=== PATIENT | male | born 1935 | race Caucasian/White ===

== ENCOUNTER 2019-03-10 16:15 | Inpatient (IN) | payer MEDICARE ==
[~2019-03-10] VITALS: Ht 180.3 cm; Wt 93.9 kg
[2019-03-10 16:23] VITALS: BP 128/72
[2019-03-10] MEDS ORDERED: WARF10TA40 PO (18:29)
[2019-03-10] MEDS ORDERED: POLY2500 PO (18:29)
[2019-03-10] MEDS ORDERED: ATOR10TA60 PO (18:29)
[2019-03-10] MEDS ORDERED: FLUT1DIS IH (18:29)
[2019-03-10] MEDS ORDERED: HYDR170P TP (18:29)
[2019-03-10] MEDS ORDERED: DICL100G18 TP (18:29)
[2019-03-10] MEDS ORDERED: MAGN400T5 PO (18:29)
[2019-03-10] MEDS ORDERED: EZET10TA20 PO (18:29)
[2019-03-10] MEDS ORDERED: URSO250T3 PO (18:29)
[2019-03-10] MEDS ORDERED: MOME13HF IH (18:29)
[2019-03-10] MEDS ORDERED: MONT10TA80 PO (18:29)
[2019-03-10] MEDS ORDERED: PROAIR RESPICL90 MCG IH (18:29)
[2019-03-10] MEDS ORDERED: ENOX40DI SQ (18:29)
[2019-03-10] MEDS ORDERED: CHOL400T6 PO (18:29)
[2019-03-10] MEDS ORDERED: CITA20TA6 PO (18:29)
[2019-03-10] MEDS ORDERED: CARV3.1230 PO (18:29)
[2019-03-10] MEDS ORDERED: FURO20TA3 PO (18:29)
[2019-03-10] MEDS ORDERED: POTA20TA4 PO (18:29)
[2019-03-10] MEDS ORDERED: DICLOFENAC SODIUM 1% TOPICAL GEL 100GM TUBE. TP PRN (19:30)
[2019-03-10] MEDS ORDERED: NON FORMULARY ITEM (Albuterol Sulfate (Proair Respiclick) 2 PUFF) IH PRN (19:30)
[2019-03-10] MEDS ORDERED: MINERAL OIL/PETROLATUM TOPICAL CREAM 113GM JAR. TP PRN (19:45)
[2019-03-10 19:46] VITALS: BP 162/67
[2019-03-10] MEDS: ALBUTEROL SULFATE 2.5 MG/3 ML NEBU. NEB SCH (20:00)
[2019-03-10] MEDS: BUDESONIDE 0.5 MG/2 ML NEBU NEB SCH (20:00)
[2019-03-10] MEDS ORDERED: ALBUTEROL SULFATE 2.5 MG/3 ML NEBU. NEB PRN (20:00)
[2019-03-10] MEDS: URSODIOL 300 MG CAPSULE. PO SCH (20:37)
[2019-03-10] MEDS: EZETIMIBE 10 MG TABLET PO SCH (20:37)
[2019-03-10] MEDS: ATORVASTATIN CALCIUM 10 MG TABLET. PO SCH (20:37)
[2019-03-10] MEDS: MONTELUKAST 10 MG TABLET. PO SCH (20:37)
[2019-03-10] MEDS ORDERED: NON FORMULARY ITEM (Mometasone/Formoterol (Dulera 200 Mcg/5 Mcg Inhaler) 2 PUFF) IH SCH (21:00)
[2019-03-10] MEDS ORDERED: NON FORMULARY ITEM (Fluticasone/Salmeterol (Advair 100-50 Diskus) 2 PUFF) IH SCH (21:00)
[2019-03-11] MEDS: ALBUTEROL SULFATE 2.5 MG/3 ML NEBU. NEB SCH ×4 (05:41→21:36)
[2019-03-11 06:00] VITALS: BP 90/53
[2019-03-11 08:05] VITALS: BP 120/70
[2019-03-11] MEDS: ENOXAPARIN 40 MG/0.4 ML SYRINGE. SQ SCH (08:07)
[2019-03-11] MEDS: MAGNESIUM OXIDE 400 MG TABLET PO SCH (08:08)
[2019-03-11] MEDS: CHOLECALCIFEROL (VITAMIN D3) 1,000 UNIT TABLET PO SCH (08:08)
[2019-03-11] MEDS: POTASSIUM CHLORIDE 20 MEQ TABLET.ER. PO SCH (08:08)
[2019-03-11] MEDS: FUROSEMIDE 20 MG TABLET PO SCH (08:08)
[2019-03-11] MEDS: URSODIOL 300 MG CAPSULE. PO SCH ×2 (08:09→21:04)
[2019-03-11] MEDS: CARVEDILOL 3.125 MG TABLET PO SCH ×2 (08:09→16:17)
[2019-03-11] MEDS: CITALOPRAM 20 MG TABLET. PO SCH (08:09)
[2019-03-11] MEDS ORDERED: POLYETHYLENE GLYCOL 3350 17 GM PACKET. PO PRN (09:00)
[2019-03-11] MEDS: BUDESONIDE 0.5 MG/2 ML NEBU NEB SCH ×2 (10:32→21:36)
[2019-03-11] MEDS ORDERED: WARFARIN 10 MG TABLET. PO SCH (16:00)
[2019-03-11 18:22] VITALS: BP 125/70
[2019-03-11] MEDS: EZETIMIBE 10 MG TABLET PO SCH (21:04)
[2019-03-11] MEDS: MONTELUKAST 10 MG TABLET. PO SCH (21:05)
[2019-03-11] MEDS: ATORVASTATIN CALCIUM 10 MG TABLET. PO SCH (21:05)
[2019-03-12] MEDS: ALBUTEROL SULFATE 2.5 MG/3 ML NEBU. NEB SCH ×4 (05:32→21:29)
[2019-03-12 05:40] VITALS: BP_SYST 111; BP_SYST 145; BP_DIAS 67; BP_DIAS 71
[2019-03-12] MEDS: BUDESONIDE 0.5 MG/2 ML NEBU NEB SCH ×3 (07:54→21:29)
[2019-03-12] MEDS: FUROSEMIDE 20 MG TABLET PO SCH (07:55)
[2019-03-12] MEDS: CHOLECALCIFEROL (VITAMIN D3) 1,000 UNIT TABLET PO SCH (07:55)
[2019-03-12] MEDS: ENOXAPARIN 40 MG/0.4 ML SYRINGE. SQ SCH (07:55)
[2019-03-12] MEDS: MAGNESIUM OXIDE 400 MG TABLET PO SCH (07:56)
[2019-03-12] MEDS: CITALOPRAM 20 MG TABLET. PO SCH (07:56)
[2019-03-12] MEDS: CARVEDILOL 3.125 MG TABLET PO SCH ×2 (07:56→17:17)
[2019-03-12] MEDS: POTASSIUM CHLORIDE 20 MEQ TABLET.ER. PO SCH (07:56)
[2019-03-12] MEDS: URSODIOL 300 MG CAPSULE. PO SCH ×2 (07:56→20:35)
[2019-03-12] MEDS: WARFARIN 6 MG TABLET. PO SCH (17:18)
[2019-03-12 20:00] VITALS: BP_SYST 122; BP_SYST 160; BP_DIAS 70; BP_DIAS 77
[2019-03-12] MEDS: ATORVASTATIN CALCIUM 10 MG TABLET. PO SCH (20:35)
[2019-03-12] MEDS: EZETIMIBE 10 MG TABLET PO SCH (20:35)
[2019-03-12] MEDS: MONTELUKAST 10 MG TABLET. PO SCH (20:36)
--- NOTE | 2019-03-12 21:47 | HP ---
ADMIT DATE: 03/10/2019 HISTORY OF PRESENT ILLNESS: The patient is an 83-year-old male patient with a past medical history significant for chronic systolic heart failure, mechanical aortic valve replacement in 1992, obstructive sleep apnea on CPAP, COPD, type 2 diabetes and Alzheimer's who was recently hospitalized at [facility] for 3 days for weakness and dehydration and was discharged on 02/21/2019. He was discharged to [place] care home unit, but was taken home that same day by his family as they did not feel he was being adequately cared for. He presented to the [facility] emergency department on 02/24/2019, ended up with complaint of weakness, abdominal pain, hypotension, possibly blood in his stool and family requested transfer to [facility], where he was [facility] on 02/25/2019. On arrival, he arrived in septic shock, was aggressively fluid resuscitated and required pressors. CT at the outside hospital was concerning for cholecystitis and ultrasound showed choledocholithiasis with 6 mm stone in the common bile duct. GI was consulted and performed ERCP and placed a stent. He improved clinically and was weaned off pressors and downgraded out of the ICU. On March 02, repeat ERCP completed, able to extract stone, stent was removed and balloon sphincteroplasty performed. He has remained improved, completed the antibiotic for 10 days, the last dose was on March 06. His warfarin was held for the procedure, but resumed now with enoxaparin bridge and he was seen in consultation by the cardiology team for evaluation of his systolic heart failure and runs of sustained ventricular tachycardia. Coreg was resumed once the patient could tolerate, his symptoms have resolved. Later in hospital course, he developed hypotension and blood pressure medications were adjusted. Once he is stabilized, he was transferred to [facility] bed to continue the process of rehabilitation. PAST MEDICAL HISTORY: Significant for: 1. Chronic systolic heart failure. 2. Mechanical aortic valve replacement in 1992. 3. Morbid obesity, obstructive sleep apnea, on CPAP. 4. Chronic obstructive pulmonary disease. 5. Diabetes mellitus. 6. Alzheimer disease. PAST SURGICAL HISTORY: Significant for: 1. Aortic valve replacement. 2. ERCP and stent placement to the common bile duct. ALLERGIES: He is allergic to MEPERIDINE AND MORPHINE. MEDICATIONS: He is currently on following medications: He is on albuterol sulfate 2 puffs every 4-6 hours; Lovenox 40 mg subcutaneously daily; warfarin 10 mg once a day; Zetia 10 mg at bedtime; atorvastatin 10 mg at bedtime; carvedilol 3.125 mg twice a day with meals; diclofenac sodium 100 g gel, 2 grams topically as needed for pain; citalopram hydrobromide 20 mg daily; potassium chloride 20 mEq once a day; furosemide 20 mg once a day; Advair Diskus 100/50 two puffs twice a day; he is on mometasone/formoterol, Dulera, 2 puffs twice a day; Singulair 10 mg at bedtime; magnesium oxide 400 mg once a day; ursodiol 300 mg twice a day; vitamin D; cholecalciferol 1000 units daily; hydrophilic cream applied topically twice a day; and polyethylene glycol 17 grams daily p.r.n. for constipation. FAMILY HISTORY: Noncontributory. SOCIAL HISTORY: He is , lives with his , has grown up children. He claims that he has never smoked, although he carries a diagnosis of COPD. Does not drink alcohol or use any recreational drugs. 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 REVIEW OF SYSTEMS: As per history of present illness. PHYSICAL EXAMINATION GENERAL: When I examined him this afternoon, he was sitting on the edge of the bed comfortably, in no apparent respiratory distress. No pallor, jaundice, cyanosis. No lymphadenopathy or thyromegaly. No jugular venous distention. No lower limb edema. VITAL SIGNS: His heart rate was 78, blood pressure was 111/67, temperature was 97.6, respiratory rate was 18 and oxygen saturation was 96% on room air. HEAD, EYES, EARS, NOSE AND THROAT: Showed normocephalic, atraumatic. NECK: Supple. HEART: Showed normal first and second heart sounds. No gallop, rub or murmur. CHEST: Clear to auscultation. No crepitation or rhonchi. ABDOMEN: Distended, soft, nontender. No guarding or rigidity. No organomegaly. All hernial orifices intact. Bowel sounds normal. NEUROLOGIC: He is somewhat hard of hearing, but otherwise all his cranial nerves are intact. He moves extremities without difficulty, he ambulates with a walker. LABORATORY WORK: Showed that his prothrombin time is 15.2, INR 1.5. His blood sugar seems to be reasonably controlled. ASSESSMENT: This is an 83-year-old male patient who was admitted to Critical access hospital with sepsis secondary to ascending cholangitis and choledocholithiasis. He was resuscitated with IV fluids, pressors and antibiotic, underwent ERCP and retrieval of 6 mm common bile duct stone. Once stabilized, he was transferred to a swing bed in [facility] to continue the process of rehabilitation. He has numerous medical problems includin. Chronic systolic congestive heart failure, ejection fraction 25%. 2. Chronic kidney disease. 3. Chronic obstructive pulmonary disease. He is a former smoker, has hyperlipidemia, hypertension, myocardial infarction. He has obstructive sleep apnea and an episode of transient ischemic attack. The patient underwent aortic valve replacement, AICD placement as well as hernia repair together with ERCP recently. PLAN: My plan is to continue with all his medication. Continue with Lovenox and Coumadin in an overlapping pattern, we will monitor his PT/INR on a daily basis and once his INR is 2.5 or more, we can discontinue Lovenox. VICKY BARR MD DR: GUANAKITO/manjeet JOB#: [id number] / [id number]
[2019-03-13] MEDS: ALBUTEROL SULFATE 2.5 MG/3 ML NEBU. NEB SCH ×4 (05:33→21:45)
[2019-03-13 06:14] VITALS: BP 137/74
[2019-03-13 07:08] LABS: HEMATOCRIT 37.4 % (39.0-53.0); HEMOGLOBIN 12.2 g/dL (13.0-17.5); RED BLOOD COUNT 3.95 x10^6/uL (4.30-5.70); RED CELL DISTRIBUTION WIDTH 14.8 % (11.5-14.5); WHITE BLOOD COUNT 5.9 x10^3/uL (4.0-11.0)
[2019-03-13 07:27] LABS: ALBUMIN 2.7 g/dL (3.4-5.0); ALBUMIN/GLOBULIN RATIO 0.7 (1.0-1.7); CALCIUM 8.6 mg/dL (8.5-10.1); GFR 71.7; POTASSIUM 4.3 mmol/L (3.5-5.1); TOTAL BILIRUBIN 0.5 mg/dL (0.2-1.0); TOTAL PROTEIN 6.5 g/dL (6.4-8.2)
[2019-03-13] MEDS: MAGNESIUM OXIDE 400 MG TABLET PO SCH (08:20)
[2019-03-13] MEDS: ENOXAPARIN 40 MG/0.4 ML SYRINGE. SQ SCH (08:20)
[2019-03-13] MEDS: URSODIOL 300 MG CAPSULE. PO SCH ×2 (08:20→21:17)
[2019-03-13] MEDS: CHOLECALCIFEROL (VITAMIN D3) 1,000 UNIT TABLET PO SCH (08:21)
[2019-03-13] MEDS: CARVEDILOL 3.125 MG TABLET PO SCH ×2 (08:21→16:10)
[2019-03-13] MEDS: FUROSEMIDE 20 MG TABLET PO SCH (08:21)
[2019-03-13] MEDS: POTASSIUM CHLORIDE 20 MEQ TABLET.ER. PO SCH (08:21)
[2019-03-13] MEDS: CITALOPRAM 20 MG TABLET. PO SCH (08:22)
[2019-03-13] MEDS: BUDESONIDE 0.5 MG/2 ML NEBU NEB SCH ×2 (10:31→21:45)
[2019-03-13] MEDS: WARFARIN 6 MG TABLET. PO SCH (16:07)
[2019-03-13 18:30] VITALS: BP 104/69
[2019-03-13] MEDS: EZETIMIBE 10 MG TABLET PO SCH (21:16)
[2019-03-13] MEDS: ATORVASTATIN CALCIUM 10 MG TABLET. PO SCH (21:16)
[2019-03-13] MEDS: MONTELUKAST 10 MG TABLET. PO SCH (21:16)
[2019-03-14] MEDS: ALBUTEROL SULFATE 2.5 MG/3 ML NEBU. NEB SCH ×4 (05:12→20:29)
[2019-03-14 05:50] VITALS: BP 100/57
[2019-03-14] MEDS: CARVEDILOL 3.125 MG TABLET PO SCH ×2 (08:00→17:00)
[2019-03-14] MEDS: URSODIOL 300 MG CAPSULE. PO SCH ×2 (08:36→19:39)
[2019-03-14] MEDS: MAGNESIUM OXIDE 400 MG TABLET PO SCH (08:37)
[2019-03-14] MEDS: POTASSIUM CHLORIDE 20 MEQ TABLET.ER. PO SCH (08:37)
[2019-03-14] MEDS: CITALOPRAM 20 MG TABLET. PO SCH (08:37)
[2019-03-14] MEDS: FUROSEMIDE 20 MG TABLET PO SCH (08:37)
[2019-03-14] MEDS: CHOLECALCIFEROL (VITAMIN D3) 1,000 UNIT TABLET PO SCH (08:37)
[2019-03-14] MEDS: ENOXAPARIN 40 MG/0.4 ML SYRINGE. SQ SCH (08:38)
[2019-03-14] MEDS: BUDESONIDE 0.5 MG/2 ML NEBU NEB SCH ×2 (09:38→20:29)
[2019-03-14] MEDS: WARFARIN 6 MG TABLET. PO SCH (16:49)
[2019-03-14 18:14] VITALS: BP 94/50
[2019-03-14] MEDS: EZETIMIBE 10 MG TABLET PO SCH (19:39)
[2019-03-14] MEDS: ATORVASTATIN CALCIUM 10 MG TABLET. PO SCH (19:39)
[2019-03-14] MEDS: MONTELUKAST 10 MG TABLET. PO SCH (19:39)
[2019-03-15 05:48] VITALS: BP 115/72
[2019-03-15] MEDS: CHOLECALCIFEROL (VITAMIN D3) 1,000 UNIT TABLET PO SCH (09:02)
[2019-03-15] MEDS: MAGNESIUM OXIDE 400 MG TABLET PO SCH (09:02)
[2019-03-15] MEDS: FUROSEMIDE 20 MG TABLET PO SCH (09:02)
[2019-03-15] MEDS: POTASSIUM CHLORIDE 20 MEQ TABLET.ER. PO SCH (09:02)
[2019-03-15] MEDS: CITALOPRAM 20 MG TABLET. PO SCH (09:02)
[2019-03-15] MEDS: CARVEDILOL 3.125 MG TABLET PO SCH ×2 (09:03→18:02)
[2019-03-15] MEDS: URSODIOL 300 MG CAPSULE. PO SCH ×2 (09:03→19:41)
[2019-03-15] MEDS: ENOXAPARIN 40 MG/0.4 ML SYRINGE. SQ SCH (09:04)
[2019-03-15] MEDS: ALBUTEROL SULFATE 2.5 MG/3 ML NEBU. NEB SCH ×3 (09:40→20:34)
[2019-03-15] MEDS: BUDESONIDE 0.5 MG/2 ML NEBU NEB SCH ×2 (09:40→20:34)
[2019-03-15] MEDS ORDERED: WARFARIN 10 MG TABLET. PO ONE (16:00)
[2019-03-15 18:12] VITALS: BP 151/75
[2019-03-15] MEDS: MONTELUKAST 10 MG TABLET. PO SCH (19:40)
[2019-03-15] MEDS: EZETIMIBE 10 MG TABLET PO SCH (19:40)
[2019-03-15] MEDS: ATORVASTATIN CALCIUM 10 MG TABLET. PO SCH (19:40)
[2019-03-16 05:52] VITALS: BP 124/82
[2019-03-16] MEDS: BUDESONIDE 0.5 MG/2 ML NEBU NEB SCH ×2 (05:54→21:06)
[2019-03-16] MEDS: ALBUTEROL SULFATE 2.5 MG/3 ML NEBU. NEB SCH ×4 (05:54→20:00)
[2019-03-16] MEDS: MAGNESIUM OXIDE 400 MG TABLET PO SCH (08:11)
[2019-03-16] MEDS: CHOLECALCIFEROL (VITAMIN D3) 1,000 UNIT TABLET PO SCH (08:11)
[2019-03-16] MEDS: URSODIOL 300 MG CAPSULE. PO SCH ×2 (08:11→20:05)
[2019-03-16] MEDS: POTASSIUM CHLORIDE 20 MEQ TABLET.ER. PO SCH (08:11)
[2019-03-16] MEDS: FUROSEMIDE 20 MG TABLET PO SCH (08:11)
[2019-03-16] MEDS: CARVEDILOL 3.125 MG TABLET PO SCH ×2 (08:11→17:00)
[2019-03-16] MEDS: ENOXAPARIN 40 MG/0.4 ML SYRINGE. SQ SCH (08:12)
[2019-03-16] MEDS: CITALOPRAM 20 MG TABLET. PO SCH (08:12)
[2019-03-16] MEDS ORDERED: WARFARIN 10 MG TABLET. PO ONE (16:00)
[2019-03-16 18:04] VITALS: BP 135/87
[2019-03-16] MEDS: ATORVASTATIN CALCIUM 10 MG TABLET. PO SCH (20:03)
[2019-03-16] MEDS: MONTELUKAST 10 MG TABLET. PO SCH (20:03)
[2019-03-16] MEDS: EZETIMIBE 10 MG TABLET PO SCH (21:00)
[2019-03-17] MEDS: ALBUTEROL SULFATE 2.5 MG/3 ML NEBU. NEB SCH ×4 (05:46→20:54)
[2019-03-17 06:17] LABS: BASO % 1 % (0-3); EOS # 0.3 x10^3/uL (0.0-0.7); EOS % 4 % (0-3); HEMATOCRIT 38.7 % (39.0-53.0); HEMOGLOBIN 12.9 g/dL (13.0-17.5); LYMPH % 46 % (24-48); MEAN CORPUSCULAR HEMOGLOBIN 32 pg (25-35); MEAN CORPUSCULAR HGB CONC 33 g/dL (31-37); MEAN CORPUSCULAR VOLUME 95 fL (79-100); MONO # 0.8 x10^3/uL (0.0-1.1); MONO % 12 % (0-9); NEUT # 2.4 x10^3uL (1.8-7.7); NEUT % 37 % (31-73); PLATELET COUNT 197 x10^3/uL (140-400); RED BLOOD COUNT 4.08 x10^6/uL (4.30-5.70); WHITE BLOOD COUNT 6.6 x10^3/uL (4.0-11.0)
[2019-03-17 06:21] LABS: ALBUMIN/GLOBULIN RATIO 0.8 (1.0-1.7); CALCIUM 8.8 mg/dL (8.5-10.1); CREATININE 1.1 mg/dL (0.7-1.3); GFR 64.2; TOTAL BILIRUBIN 0.5 mg/dL (0.2-1.0)
[2019-03-17 06:29] VITALS: BP 130/68
[2019-03-17] MEDS: CHOLECALCIFEROL (VITAMIN D3) 1,000 UNIT TABLET PO SCH (08:05)
[2019-03-17] MEDS: URSODIOL 300 MG CAPSULE. PO SCH ×2 (08:05→21:02)
[2019-03-17] MEDS: CARVEDILOL 3.125 MG TABLET PO SCH ×2 (08:05→17:02)
[2019-03-17] MEDS: POTASSIUM CHLORIDE 20 MEQ TABLET.ER. PO SCH (08:05)
[2019-03-17] MEDS: CITALOPRAM 20 MG TABLET. PO SCH (08:05)
[2019-03-17] MEDS: FUROSEMIDE 20 MG TABLET PO SCH (08:05)
[2019-03-17] MEDS: MAGNESIUM OXIDE 400 MG TABLET PO SCH (08:05)
[2019-03-17] MEDS: ENOXAPARIN 40 MG/0.4 ML SYRINGE. SQ SCH (08:06)
[2019-03-17] MEDS: BUDESONIDE 0.5 MG/2 ML NEBU NEB SCH ×2 (09:51→20:54)
[2019-03-17] MEDS ORDERED: ENOXAPARIN ** NOTE DOSE ** SYRINGE SQ ONE (10:45)
[2019-03-17] MEDS ORDERED: WARFARIN 10 MG TABLET. PO ONE (16:00)
[2019-03-17] MEDS ORDERED: WARFARIN 5 MG TABLET. PO ONE (16:00)
[2019-03-17 18:12] VITALS: BP 123/78
[2019-03-17] MEDS: EZETIMIBE 10 MG TABLET PO SCH (21:02)
[2019-03-17] MEDS: ATORVASTATIN CALCIUM 10 MG TABLET. PO SCH (21:02)
[2019-03-17] MEDS: MONTELUKAST 10 MG TABLET. PO SCH (21:02)
[2019-03-17] MEDS: ENOXAPARIN ** NOTE DOSE ** SYRINGE SQ SCH (21:02)
[2019-03-18] MEDS: ALBUTEROL SULFATE 2.5 MG/3 ML NEBU. NEB SCH ×4 (06:02→20:00)
[2019-03-18 06:05] VITALS: BP 126/74
[2019-03-18] MEDS: CARVEDILOL 3.125 MG TABLET PO SCH ×2 (08:18→17:02)
[2019-03-18] MEDS: URSODIOL 300 MG CAPSULE. PO SCH ×2 (08:18→20:28)
[2019-03-18] MEDS: POTASSIUM CHLORIDE 20 MEQ TABLET.ER. PO SCH (08:19)
[2019-03-18] MEDS: FUROSEMIDE 20 MG TABLET PO SCH (08:19)
[2019-03-18] MEDS: CITALOPRAM 20 MG TABLET. PO SCH (08:19)
[2019-03-18] MEDS: CHOLECALCIFEROL (VITAMIN D3) 1,000 UNIT TABLET PO SCH (08:20)
[2019-03-18] MEDS: MAGNESIUM OXIDE 400 MG TABLET PO SCH (08:20)
[2019-03-18] MEDS: ENOXAPARIN ** NOTE DOSE ** SYRINGE SQ SCH ×2 (08:21→20:28)
[2019-03-18] MEDS: BUDESONIDE 0.5 MG/2 ML NEBU NEB SCH ×2 (09:52→21:40)
[2019-03-18] MEDS ORDERED: WARFARIN 10 MG TABLET. PO ONE (16:00)
[2019-03-18 18:05] VITALS: BP 117/73
[2019-03-18] MEDS: MONTELUKAST 10 MG TABLET. PO SCH (20:27)
[2019-03-18] MEDS: EZETIMIBE 10 MG TABLET PO SCH (20:27)
[2019-03-18] MEDS: ATORVASTATIN CALCIUM 10 MG TABLET. PO SCH (20:27)
[2019-03-19 05:16] VITALS: BP 105/62
[2019-03-19] MEDS: ALBUTEROL SULFATE 2.5 MG/3 ML NEBU. NEB SCH ×4 (05:47→21:45)
[2019-03-19] MEDS: FUROSEMIDE 20 MG TABLET PO SCH (08:50)
[2019-03-19] MEDS: MAGNESIUM OXIDE 400 MG TABLET PO SCH (08:50)
[2019-03-19] MEDS: POTASSIUM CHLORIDE 20 MEQ TABLET.ER. PO SCH (08:51)
[2019-03-19] MEDS: CARVEDILOL 3.125 MG TABLET PO SCH ×2 (08:51→16:00)
[2019-03-19] MEDS: CHOLECALCIFEROL (VITAMIN D3) 1,000 UNIT TABLET PO SCH (08:51)
[2019-03-19] MEDS: CITALOPRAM 20 MG TABLET. PO SCH (08:51)
[2019-03-19] MEDS: ENOXAPARIN ** NOTE DOSE ** SYRINGE SQ SCH ×2 (08:52→20:42)
[2019-03-19] MEDS: URSODIOL 300 MG CAPSULE. PO SCH ×2 (08:58→20:41)
[2019-03-19] MEDS: BUDESONIDE 0.5 MG/2 ML NEBU NEB SCH ×2 (11:21→21:45)
[2019-03-19 16:00] VITALS: BP 99/58
[2019-03-19] MEDS ORDERED: WARFARIN 10 MG TABLET. PO ONE (16:00)
[2019-03-19 17:43] VITALS: BP 99/58
[2019-03-19] MEDS: ATORVASTATIN CALCIUM 10 MG TABLET. PO SCH (20:41)
[2019-03-19] MEDS: MONTELUKAST 10 MG TABLET. PO SCH (20:41)
[2019-03-19] MEDS: EZETIMIBE 10 MG TABLET PO SCH (20:42)
[2019-03-20 05:36] VITALS: BP 97/63
[2019-03-20] MEDS: ALBUTEROL SULFATE 2.5 MG/3 ML NEBU. NEB SCH ×2 (06:22→08:45)
[2019-03-20] MEDS: BUDESONIDE 0.5 MG/2 ML NEBU NEB SCH (06:22)
[2019-03-20] MEDS: URSODIOL 300 MG CAPSULE. PO SCH (07:53)
[2019-03-20 07:54] VITALS: BP 97/63
[2019-03-20] MEDS: CARVEDILOL 3.125 MG TABLET PO SCH (07:54)
[2019-03-20] MEDS: CITALOPRAM 20 MG TABLET. PO SCH (07:54)
[2019-03-20] MEDS: MAGNESIUM OXIDE 400 MG TABLET PO SCH (07:54)
[2019-03-20] MEDS: FUROSEMIDE 20 MG TABLET PO SCH (07:54)
[2019-03-20] MEDS: POTASSIUM CHLORIDE 20 MEQ TABLET.ER. PO SCH (07:55)
[2019-03-20] MEDS: CHOLECALCIFEROL (VITAMIN D3) 1,000 UNIT TABLET PO SCH (07:55)
[2019-03-20] MEDS: ENOXAPARIN ** NOTE DOSE ** SYRINGE SQ SCH (09:00)
[2019-03-20] MEDS ORDERED: WARF7.5T45 PO (14:05)
--- NOTE | 2019-03-20 14:09 | DISCH ---
HOME HEALTH DISCHARGE/MEDS DISCHARGE INFORMATION: Discharge Date: Mar 20, 2019 Final Diagnosis: A/C Combined CHF Aortic valve replacement Condition on Discharge: Stable CODE STATUS: Code Status: DNR/DNI HOME HEALTH: Face to Face: I certify this patient is under my care and that I, or a nurse practitioner or physician's administrative assistant office manager working with me, had a face to face encounter that meets the physician face to face encounter requirements with this patient on 03/20/19 Medical Condition(s): CHF Jail For: Admin/Educate Injections, Assess Cardiopulm Status Physical Therapy For: Evalulation/Treatment Occupational Therapy For: Evaluation/Treatment Homebound Status Met By: Unsteady balance w/ amb, POST DISCHARGE ORDERS: Activity Instructions for Disc: Resume previous activity DIET AFTER DISCHARGE: Cardiac CHECKS AFTER DISCHARGE: Comment: check PT/INR EVERY SATURDAY AND SATURDAY FOLLOW UP: Anticoagulation F/U Needed: AIM FOR INR OF 2.5-3.5 CERTIFICATION STATEMENT: Certification Statement: Based on the above finding, I certify that this patient is confined to the home and needs intermittent nursing home care, physical therapy and/or speech therapy, or continues to need occupational therapy.~ This patient is under my care, and I have initiated the establishment of the plan of care.~ This patient will be followed by myself or a community physician who will periodically review the plan of care. DISCHARGE MEDICATIONS: Home Meds Active Scripts Warfarin Sodium (WARFARIN SODIUM) 7.5 Mg Tablet, 7.5 MG PO DAILY for ARVR for 30 Days, #30 TAB Prov:VICKY BARR MD 03/20/19 Reported Medications Ursodiol (JEFRY) 250 Mg Tablet, 300 MG PO BID for GALL STONES, % 03/10/19 Albuterol Sulfate (Proair Respiclick) 90 Mcg Aer.pow.ba, 2 PUFF IH PRN Q4-6HRS PRN for shortness of breath, % 0 Refills 03/10/19 Potassium Chloride (POTASSIUM CHLORIDE ) 20 Meq Tablet.er, 20 MEQ PO DAILY for SUPPLEMENT, TAB 03/10/19 Polyethylene Glycol 3350 (POLYETHYLENE GLYCOL 3350) 2,500 Gm Powder, 17 GM PO PRN DAILY PRN for CONSTIPATION, % 03/10/19 Montelukast Sodium (MONTELUKAST SODIUM TABLET ) 10 Mg Tablet, 10 MG PO HS for FOR ASTHMA, % 03/10/19 Mometasone/Formoterol (DULERA 200 MCG/5 MCG INHALER) 13 Gm Hfa.aer.ad, 2 PUFF IH BID for ALLERGIES, % 03/10/19 Magnesium Oxide (MAGNESIUM OXIDE) 400 Mg Tablet, 1 TAB PO DAILY for SUPPLEMENT, % 03/10/19 Hydrophilic Cream (TRIAD) 170 Gm Paste..g., 170 GM TP PRN BID PRN for DRY SKIN, % 03/10/19 Furosemide (FUROSEMIDE) 20 Mg Tablet, 1 TAB PO DAILY for FLUID RETENTION, % 03/10/19 Fluticasone/Salmeterol (ADVAIR 100-50 DISKUS) 1 Each Disk.w.dev, 2 PUFF IH BID for ALLERGIES, % 03/10/19 Ezetimibe (ZETIA) 10 Mg Tablet, 1 TAB PO HS for HIGH CHOLESTEROL, % 0 Refills 03/10/19 Diclofenac Sodium (VOLTAREN) 100 Gm Gel..gram., 2 GM TP PRN PRN for PAIN for 30 Days, % 0 Refills apply to affected area(s) 03/10/19 Citalopram Hydrobromide (CITALOPRAM HBR) 20 Mg Tablet, 20 MG PO DAILY for DEPRESSION, % 03/10/19 Cholecalciferol (Vitamin D3) (VITAMIN D3) 400 Unit Tab.chew, 1000 UNIT PO DAILY for SUPPLEMENT, % 03/10/19 Carvedilol (CARVEDILOL ) 3.125 Mg Tablet, 3.125 MG PO BIDWMEALS for CARDIAC, TAB 03/10/19 Atorvastatin Calcium (ATORVASTATIN CALCIUM) 10 Mg Tablet, 1 TAB PO HS for HIGH CHOLESTEROL, % 03/10/19 Discontinued Reported Medications Warfarin Sodium (WARFARIN SODIUM) 10 Mg Tablet, 10 MG PO QEVNG for BLOOD THINNER, TAB 03/10/19 Enoxaparin Sodium (LOVENOX) 40 Mg/0.4 Ml Disp.syrin, 0.4 ML SQ DAILY for BLOOD THINNER, % 03/10/19 VICKY BARR MD Mar 20, 2019 14:09
[2019-03-20] MEDS ORDERED: WARFARIN 7.5 MG TABLET. PO ONE (16:00)
--- NOTE | 2019-03-20 17:19 | DS ---
DATE OF DISCHARGE: 03/20/2019 HOSPITAL COURSE: The patient is an 83-year-old male patient who was admitted to [facility] bed on 03/12/2019. He was originally seen at the [facility] Emergency Department on 02/24/2019 with a complaint of weakness, abdominal pain, hypotension, possibly blood in his stool and family requested transfer to [facility] where he was transferred to [facility] on 02/25/2019 on arrival. He arrived in septic shock, was aggressively fluid resuscitated and required pressors. CT at the outside hospital was concerning for cholecystitis and ultrasound showed choledocholithiasis, 6 mm stone in the common bile duct. GI was consulted, performed ERCP and placed a stent. He improved clinically and was weaned off pressors and downgraded out of the ICU; on 03/02/2019, the repeat ERCP completed, we were able to extract the stone, stent was removed and balloon sphincteroplasty performed. He continued to improve and completed antibiotic for 10 days. His last dose was on 03/06/2019. His warfarin was held for the procedure, but resumed now on Lovenox bridge and was seen in consultation by the Cardiology team for evaluation of systolic heart failure and runs of sustained ventricular tachycardia. His Coreg was resumed once the patient could tolerate, his symptoms have resolved. Later in the hospital course, he developed hypotension, the blood pressure medications were adjusted. Once he is stabilized, he was transferred to [facility] to continue the process of rehabilitation. He did very well and now he is up and about, able to ambulate with a walker. We did continue to monitor his prothrombin time, INR and adjusting his Coumadin such that his INR today was 2.5, which is well within the therapeutic dose as he has prosthetic aortic valve and as he remained hemodynamically stable and afebrile, a decision was made to discharge him home with home health. PHYSICAL EXAMINATION: GENERAL: When I saw him today, he was sitting comfortably in his chair, in no apparent respiratory distress, slightly pale, no jaundice, cyanosis or thyromegaly. No jugular venous distension. No limb edema. VITAL SIGNS: His heart rate was 76, blood pressure was 97/63, temperature was 97.5, respiratory rate 20, and oxygen saturation was 98% on 2 liters of oxygen. HEAD, EYES, EARS, NOSE AND THROAT: Showed normocephalic, atraumatic. NECK: Supple. HEART: Showed normal first and second heart sounds. No gallop, rub or murmur. CHEST: Clear to auscultation. No crepitation or rhonchi. ABDOMEN: Slightly distended, soft, nontender. NEUROLOGIC: He was awake, alert, responding appropriately. All his cranial nerves are intact. He moves extremities without difficulty, ambulates with a walker. His intake was 1600, output was 975. LABORATORY DATA: His most recent lab work showed a white cell count of 6600, hemoglobin 13, hematocrit 39, MCV 95, and platelet count of 197,000. Serum sodium 138, potassium 4, chloride 103, bicarbonate 28, anion gap of 7, BUN 29, creatinine was 1.1, estimated GFR was 64 mL per minute, his glucose 119, calcium was 8.8. Total bilirubin, AST, ALT, alkaline phosphatase were normal. Total protein was 7, albumin 3. His prothrombin time was 25.6, INR of 2.5. DISCHARGE MEDICATIONS: He was discharged home to continue on following medications: He is on Coumadin 7.5 mg daily, albuterol sulfate 2 puffs every 4-6 hours, atorvastatin calcium 10 mg at bedtime, carvedilol 3.125 mg twice a day with meals, cholecalciferol vitamin D3 1000 International Units once a day, citalopram hydrobromide 20 mg daily, diclofenac sodium for Voltaren gel 2 grams apply topically daily as needed, Zetia 10 mg daily, Advair Diskus 100/50 two puffs twice a day, furosemide 20 mg daily, hydrophilic cream applied topically twice a day for dry skin, magnesium oxide 400 mg daily, mometasone/formoterol for Dulera 2 puffs twice a day, Singulair 10 mg once a day, polyethylene glycol 17 grams daily, potassium chloride 20 mEq once a day, ursodiol 300 mg twice a day. FINAL DISCHARGE DIAGNOSES: 1. Chronic systolic heart failure, well compensated. 2. Mechanical aortic valve replacement. 3. Morbid obesity, obstructive sleep apnea, on CPAP. 4. Chronic obstructive pulmonary disease. 5. Type 2 diabetes mellitus. 6. Alzheimer disease. PLAN: To discharge home with home health. The home health nursing staff will check his PT/INR every Saturday and Saturday and the results would be transmitted to the [facility] to adjust his Coumadin. He was discharged on 7.5 mg of Coumadin daily. VICKY BARR MD DR: GUANAKITO/manjeet JOB#: [id number] / [id number]
== END 2019-03-20 14:38 | disposition home health service (06) | DRG 871 ==
LOC: LND 16:15
PROVIDERS: ADMIT Internal Medicine; ATTEND Internal Medicine
DX: A41.9 Sepsis, unspecified organism (principal); R65.21 Severe sepsis with septic shock; K80.30 Calculus of bile duct with cholangitis, unspecified, without obstruction; I50.22 Chronic systolic (congestive) heart failure; I13.0 Hypertensive heart and chronic kidney disease with heart failure and stage 1 through stage 4 chronic kidney disease, or unspecified chronic kidney disease; G45.9 Transient cerebral ischemic attack, unspecified; I47.2 Ventricular tachycardia; G30.9 Alzheimer's disease, unspecified; J44.9 Chronic obstructive pulmonary disease, unspecified; N18.9 Chronic kidney disease, unspecified; E66.01 Morbid (severe) obesity due to excess calories; G47.33 Obstructive sleep apnea (adult) (pediatric); E11.22 Type 2 diabetes mellitus with diabetic chronic kidney disease; E78.5 Hyperlipidemia, unspecified; F02.80 Dementia in other diseases classified elsewhere, unspecified severity, without behavioral disturbance, psychotic disturbance, mood disturbance, and anxiety; Z68.28 Body mass index [BMI] 28.0-28.9, adult; I25.2 Old myocardial infarction; Z87.891 Personal history of nicotine dependence; Z95.2 Presence of prosthetic heart valve; Z88.5 Allergy status to narcotic agent; Z88.8 Allergy status to other drugs, medicaments and biological substances; Z95.810 Presence of automatic (implantable) cardiac defibrillator
CPT/HCPCS: 36415; 80053; 82947; 85025; 85027; 85610; 94640; J1650; J7613; J7626; 97110; 97116; 97530; 97535

== ENCOUNTER 2020-09-24 02:49 | Emergency (ER) | payer MEDICARE ==
[~2020-09-24] VITALS: Ht 180.3 cm; Wt 96.9 kg
[~2020-09-24 02:49] MED LIST: ATOR10TA60 PO; CARV3.1230 PO; CHOL400T6 PO; CITA20TA6 PO; DICL100G18 TP; ENOX40DI SQ; EZET10TA20 PO; FLUT1DIS IH; FURO20TA3 PO; HYDR170P TP; MAGN400T5 PO; MOME13HF IH; MONT10TA80 PO; POLY2500 PO; POTA20TA4 PO; PROAIR RESPICL90 MCG IH; URSO250T3 PO; WARF10TA40 PO; WARF7.5T45 PO
--- NOTE | 2020-09-24 02:56 | PHYS DOC ---
Past History Past Medical History: Angina, Arthritis, CAD, CHF, COPD, CVA, Coagulopathy, Dementia, Diabetes, Gallstones, GERD, High Cholesterol, Heart Disease, Hypertension, Kidney Stones, Lung Disease, [place], Stroke Past Medical History Sleep apnea Past Surgical History: Angioplasty, Pacemaker, Other Past Surgical History Aortic valve replacement, Hernia repair, Rt. arm reattachment- Smoking: Cigarettes, Quit Greater Than 1 Year General Adult HPI: HPI: " This shocker went off..." Patient is a 85 year old male who presents with above hx and complaints of his defibrillator discharging.. Patient states it woke him from sleep. Shortly after arrival to the ED pt had recurrent defibrillations for runs of V. tach.. Patient has significant cardiac history of aortic valve replacement for failure of Bicuspid aortic value. . Normally follows at [facility]. Diverted [facility] to [facility]. Patient states he been compliant with all his cardiac meds. No recent travel. No significant ill contacts. Patient is on Coumadin for metal aortic valve. Arotic valve placed 1996 at [facility]. Pt. has completed Moderna x , May of this year. Pt. defibrillator dischargefd while pt. in V- tach on monitor. Patient past medical history of renal stones , urosepsis , gallstones, CVA'a,, cardiomyopathy ,WY's, HTN,CHF, Parkinson, Sleep apnea, GI bleed, repiratory failure- hypoxia,, obesity,DM, COPD, diabetes, Alzheimer's, and gait disorder. Pt. has been unable to tolerate CPAP last several months, and now only wears oxygen 3 liters when he sleeps or desaturates. Pt. still chews tobacco. Pt. has had recent discussion as to benefits of Hospice. Has not been placed on Hospice . advised there would be no additional benefits through the [facility] with this designation. Pt.no longer walks with is walker. Is able to stand and turn. Pt. has frequent falls - reportedly every day when he is in the process of standing and turning.. Pt. of 45 years is at bed side. She is pt primary care provider. Pt. Dr. at [facility] is Dr. Ace. Review of Systems: Review of Systems: Constitutional: Denies fever or chills Eyes: Denies change in visual acuity HENT: Denies nasal congestion or sore throat Respiratory: Denies cough or shortness of breath Chest: Complaints of chest pain and defibrillator discharge. GI: Denies abdominal pain, nausea, vomiting, bloody stools or diarrhea : Denies dysuria Musculoskeletal: Denies back pain or joint pain Integument: Denies rash Neurologic: Denies headache, focal weakness or sensory changes Endocrine: Denies polyuria or polydipsia Lymphatic: Denies swollen glands Psychiatric: Denies depression or anxiety Family History: Family History: Noncontributory to presentation Current Medications: Current Meds: See nursing for home meds Allergies: Allergies: Allergies Coded Allergies Type Severity Reaction Last Updated Verified meperidine Allergy Unknown 03/10/19 Yes morphine Allergy Unknown 03/10/19 Yes Physical Exam: PE: Constitutional:in acute distress with periodic defibulatory discharge,, non- toxic appearance. [] HENT: Normocephalic, atraumatic, bilateral external ears normal, oropharynx moist, no oral exudates, nose normal. [] Eyes: PERRLA, EOMI, conjunctiva normal, no discharge. [] Neck: Normal range of motion, no tenderness, supple, no stridor. [] Cardiovascular: Irregular heart rate regular rhythm, murmur systolic], mechanical click aortic area Lungs & Thorax: Bilateral breath sounds equal apex with scattered wheezes and basilar crackles on auscultation []. Midline scar. Patient defibrillator left upper chest wall Abdomen: Bowel sounds normal, soft, no tenderness, no masses, no pulsatile masses. Umbilicus hernia. Obese. Old surgery scars. Pt.diaper is dry. Skin: Warm, dry, no erythema, no rash. [] Back: No tenderness, no CVA tenderness. [] Extremities: No tenderness, no cyanosis, no clubbing, ROM intact, no edema. [] Scar on right forearm Neurologic: Alert and oriented X 3, normal motor function, normal sensory function, no focal deficits noted. [] Psychologic: Affect anxious. , mood normal. []Obvious memory issues. EKG: EKG: My interpretation of EKG shows a sinus rhythm low voltage with intraventricular block.. Noted patient had multiple runs of V. tach that were defibrillated.. See strip s Radiology/Procedures: Radiology/Procedures: [][address] [address] IMAGING REPORT Signed PATIENT: NATALEE HINOJOSA ACCOUNT: [id number] : 1935 LOCATION: ER AGE: 85 SEX: M EXAM STATUS: REG ER ORD. PHYSICIAN: VICENTE PADILLA MD REASON: def. dischasrge, hx cardiac PROCEDURE: PORTABLE CHEST 1V EXAMINATION: XR CHEST 1V CLINICAL HISTORY: def. discharge, hx cardiac EXAM DATE/TIME: 09/24/2020 3:12 AM COMPARISON: None FINDINGS: Lines, Tubes, and Devices: Left-sided cardiac pacemaker. Cardiomediastinal Silhouette: Normal heart size. Aortic atherosclerotic calcification. Lungs and Pleura: No evidence of focal airspace consolidation or pleural effusion. Pulmonary vasculature unremarkable. Bones and Soft Tissues: Median sternotomy wires. Degenerative changes of the thoracic spine. IMPRESSION: No evidence of acute cardiopulmonary abnormality. Electronically signed by: Nneka Raman DO (09/24/2020 3:51 AM) [facility] DICTATED AND SIGNED BY: NNEKA RAMAN DO DATE: 09/24/200 CC: VICENTE PADILLA MD; PCP,NO ~MTH0 0 Heart Score: C/O Chest Pain: Yes HEART Score for Chest Pain: HEART Score for Chest Pain Response (Comments) Value History Highly Suspicious [address] Depression 2 Age > 65 2 Risk Factors >3 Risk Factors or Hx CAD 2 Troponin >3 x Normal Limit 2 Total 10 Risk Factors: Risk Factors: DM, Current or recent (<one month) smoker, HTN, HLP, family history of CAD, obesity. Risk Scores: Score 0 - 3: 2.5% MACE over next 6 weeks - Discharge Home Score 4 - 6: 20.3% MACE over next 6 weeks - Admit for Clinical Observation Score 7 - 10: 72.7% MACE over next 6 weeks - Early Invasive Strategies Course & Med Decision Making: Course & Med Decision Making Pertinent Labs and Imaging studies reviewed. (See chart for details) Pt. did receive 150 mg amiodarone IV after 6 episode of V. tach. Discussed presentation, testing and treatment plan with transfer nurse at [facility]. Advised needed full copy of his history and physical here and labs and this should be referred to cardiology to see if they would accept patient in transfer. then advised that patient not be [place] .but would prefer to go to [facility] or [facility]. Patient's presentation test and treatment plan discussed with - accepted in transfer to [facility]. Impression: 1. Recurrent V. tach-defibrillated by pacer /monitor ( Recurrent episodes in ED until amiodarone given.) 2. CHF 2835 BNP 3. Elevated Trop. 0146 4. Elevated DM - 143 5. Elevated Creat. 1.4 6. Pt. completed Moderna COVID vaccination x 2 May- at [facility] [] Dragon Disclaimer: Dragon Disclaimer: This electronic medical record was generated, in whole or in part, using a voice recognition dictation system. Departure Departure: Referrals: PCP,NO (PCP) Dragon Disclaimer This chart was dictated in whole or in part using Voice Recognition software in a busy, high-work load, and often noisy Emergency Department environment. It may contain unintended and wholly unrecognized errors or omissions. Dragon Disclaimer This chart was dictated in whole or in part using Voice Recognition software in a busy, high-work load, and often noisy Emergency Department environment. It may contain unintended and wholly unrecognized errors or omissions. Dragon Disclaimer This chart was dictated in whole or in part using Voice Recognition software in a busy, high-work load, and often noisy Emergency Department environment. It may contain unintended and wholly unrecognized errors or omissions. VICENTE PADILLA MD Sep 24, 2020 02:56
[2020-09-24] MEDS ORDERED: IV RINGERS SOLUTION,LACTATED 1,000 ML IV SCH (03:00)
--- NOTE | 2020-09-24 03:14 | EKG ---
[address] [address] Test Date: 2020-09-24 Test Time: 03:06:25 Pat Name: NATALEE HINOJOSA Department: Room: Gender: M Test Desk Trouble Locator: : 1935 Requested By: VICENTE PADILLA Order Number: [id number] Reading MD: Measurements Intervals [place] Rate: 77 P: 90 NE: 186 QRS: 161 QRSD: 208 T: 24 QT: 450 QTc: 511 Interpretive Statements SINUS RHYTHM LOW LIMB LEAD VOLTAGE NON SPECIFIC INTRAVENTRICULAR BLOCK ABNORMAL ECG RI6.02 No previous ECG available for comparison
[2020-09-24] MEDS ORDERED: AMIODARONE 150 MG in IV DEXTROSE 5% 100 ML IVP ONE (03:15)
[2020-09-24] MEDS ORDERED: AMIODARONE 150 MG/3 ML VIAL IVP ONE (03:25)
[2020-09-24] MEDS ORDERED: IV DEXTROSE 5% 100 ML IV ONE (03:25)
[2020-09-24 03:33] LABS: BASO # 0.1 x10^3/uL (0.0-0.2); BASO % 1 % (0-3); EOS # 0.2 x10^3/uL (0.0-0.7); EOS % 2 % (0-3); HEMATOCRIT 39.1 % (39.0-53.0); LYMPH # 1.6 x10^3/uL (1.0-4.8); LYMPH % 22 % (24-48); MEAN CORPUSCULAR HEMOGLOBIN 33 pg (25-35); MEAN CORPUSCULAR HGB CONC 33 g/dL (31-37); MEAN CORPUSCULAR VOLUME 99 fL (79-100); MONO # 0.8 x10^3/uL (0.0-1.1); MONO % 11 % (0-9); NEUT # 4.7 x10^3uL (1.8-7.7); NEUT % 64 % (31-73); PLATELET COUNT 195 x10^3/uL (140-400); RED BLOOD COUNT 3.97 x10^6/uL (4.30-5.70); RED CELL DISTRIBUTION WIDTH 13.4 % (11.5-14.5); WHITE BLOOD COUNT 7.3 x10^3/uL (4.0-11.0)
[2020-09-24 03:43] LABS: ALBUMIN 3.3 g/dL (3.4-5.0); ALK PHOS 107 U/L (46-116); ALT (SGPT) 28 U/L (16-63); ANION GAP 5 (6-14); AST (SGOT) 56 U/L (15-37); BLOOD UREA NITROGEN 18 mg/dL (8-26); CALCIUM 8.6 mg/dL (8.5-10.1); CARBON DIOXIDE 30 mmol/L (21-32); CHLORIDE 110 mmol/L (98-107); CREATININE 1.4 mg/dL (0.7-1.3); GFR 48.4; GLUCOSE 143 mg/dL (70-99); LIPASE 109 U/L (73-393); MAGNESIUM 2.2 mg/dL (1.8-2.4); POTASSIUM 4.9 mmol/L (3.5-5.1); SODIUM 145 mmol/L (136-145); TOTAL BILIRUBIN 0.4 mg/dL (0.2-1.0); TOTAL PROTEIN 6.5 g/dL (6.4-8.2)
[2020-09-24 03:48] LABS: DIRECT BILIRUBIN < 0.1 mg/dL (0.0-0.2)
--- NOTE | 2020-09-24 03:54 | RAD ---
EXAMINATION: XR CHEST 1V CLINICAL HISTORY: def. discharge, hx cardiac EXAM DATE/TIME: 09/24/2020 3:12 AM COMPARISON: None FINDINGS: Lines, Tubes, and Devices: Left-sided cardiac pacemaker. Cardiomediastinal Silhouette: Normal heart size. Aortic atherosclerotic calcification. Lungs and Pleura: No evidence of focal airspace consolidation or pleural effusion. Pulmonary vasculat ure unremarkable. Bones and Soft Tissues: Median sternotomy wires. Degenerative changes of the thoracic spine. IMPRESSION: No evidence of acute cardiopulmonary abnormality. Electronically signed by: Tanmay Chiang DO (09/24/2020 3:51 AM) [facility]
[2020-09-24] MEDS ORDERED: MAGNESIUM SULFATE 2GM 50 ML IV ONE (04:00)
[2020-09-24] MEDS ORDERED: FUROSEMIDE 40 MG/4 ML VIAL IVP ONE (04:15)
[2020-09-24 05:15] VITALS: BP 132/65
[2020-09-24 05:32] LABS: BILIRUBIN,URINE NEG (NEG); CLARITY,URINE CLEAR; COLOR,URINE YELLOW; GLUCOSE,URINE NEG (NEG)
[2020-09-24 05:33] LABS: BACTERIA,URINE FEW /HPF (0-FEW); NITRITE,URINE NEG (NEG); RBC,URINE 0 /HPF (0-2); SQUAMOUS EPITHELIAL CELL,UR OCC /LPF; WBC,URINE 0 /HPF (0-4)
[2020-09-24 05:36] LABS: BARBITURATES NEG (NEG); BENZODIAZEPINES NEG (NEG); CANNABINOIDS NEG (NEG); COCAINE NEG (NEG); METHADONE NEG (NEG); OPIATES NEG (NEG); PHENCYCLIDINE NEG (NEG)
[2020-09-24 05:38] LABS: AMPHETAMINE/METHAMPHETAMINE NEG (NEG)
--- NOTE | 2020-09-24 13:46 | HP ---
ADMIT DATE: 09/24/2020 HISTORY OF PRESENT ILLNESS: The patient is an 85-year-old male patient who presented to the emergency room of [facility] as his defibrillator has discharged and woke him from sleep. He apparently was brought to the Emergency Room and shortly after he arrived, has had recurrent fibrillation with runs of V-tach. The patient was extensively investigated and has had an EKG, which showed that he was in sinus rhythm with low voltage with intraventricular block noted. The patient had multiple runs of V-tach that were defibrillated. His chest x-ray showed no evidence of acute cardiopulmonary abnormality and he apparently was given 150 mg amiodarone IV after 6 episodes of V-tach and apparently he normally follows at the [facility]. Initially, the plan was to transfer him to the [facility]; however, they did not accept him in transfer and therefore, he was transferred to [facility] to consult the Cardiology team. While in the emergency room, he had lab work, which showed that his troponin was 0.146 and his beta natriuretic peptide was 2835. His prothrombin time was 37.3, INR of 3.8, APTT was 34 and D-dimer was 0.78; however, his urinalysis was unremarkable and tox screen was essentially negative and the patient was transferred to [facility] with recurrent episodes of ventricular tachycardia defibrillated by the defibrillator. He has also elevated troponin at 0.46 and he has also slightly impaired kidney function. He apparently has completed his COVID-19 vaccination by Moderna vaccine on May at the [place]. The patient seems to have mild cognitive impairment and does not really give useful information. PAST MEDICAL HISTORY: Significant for congenital bicuspid aortic valve, status post aortic valve replacement with prosthetic valve. The patient is also known to have coronary artery disease, type 2 diabetes mellitus, hyperlipidemia, hypertension, chronic kidney disease, apparently had also history of myocardial infarction as well as stroke and osteoarthritis. He is also known to have obstructive sleep apnea on CPAP. PAST SURGICAL HISTORY: Significant for angioplasty, AICD placement, aortic valve replacement, hernia repair and right arm reattachment. FAMILY HISTORY: Noncontributory. SOCIAL HISTORY: He lives with his . He apparently continued to chew tobacco, quit smoking more than a year ago. Does not drink alcohol or recreational drugs. ALLERGIES: HE IS ALLERGIC TO MEPERIDINE AND MORPHINE. MEDICATIONS: He is currently on the following medications: He is currently on albuterol sulfate 2 puffs every 4-6 hours, warfarin 7.5 mg once a day, Zetia 10 mg once a day, atorvastatin calcium 10 mg at bedtime, carvedilol 3.125 mg twice a day, diclofenac sodium 2 grams applied topically as needed, citalopram hydrobromide 20 mg daily, potassium chloride 20 mEq daily. He is on furosemide 20 mg once a day, for Advair Diskus 100/50 two puffs twice a day, mometasone and formoterol (Dulera) 2 puffs twice a day, montelukast 10 mg at bedtime, ursodiol 300 mg twice a day, cholecalciferol (vitamin D) 1000 units once a day, hydrophilic cream for Triad apply topically for dry skin and polyethylene glycol 17 grams daily for constipation. PHYSICAL EXAMINATION: GENERAL: On arrival to the emergency room, the patient looked well and was clearly in no apparent respiratory distress. There was no pallor, jaundice, cyanosis, or thyromegaly. No jugular venous distention. Mild bilateral lower limb edema. VITAL SIGNS: His heart rate was 83, blood pressure was 125/63, temperature was 98.3, respiratory rate 20, and oxygen saturation was 94% on room air. HEAD, EYES, EARS, NOSE, AND THROAT: Normocephalic, atraumatic. NECK: Supple. HEART: Showed normal first and second heart sounds, no gallop, rub or murmur. CHEST: Shows central trachea, equal bilateral chest expansion, air entry, vesicular breath sounds. I could not really appreciate any crepitation or rhonchi. ABDOMEN: Distended, soft, nontender. NEUROLOGIC: He was somewhat demented, but without any obvious lateralizing sign. All his cranial nerves are intact. He moves extremities without difficulty, although the patient is unable to walk and has had multiple episodes of fall. LABORATORY DATA: On arrival to the emergency room showed a white cell count 7300, hemoglobin 13, hematocrit 39, MCV 99 and platelet count of 195,000 with normal manual differential. His chemistry showed a serum sodium 145, potassium was 4.9, chloride 110, bicarbonate 30, anion gap of 5, BUN 18, creatinine 1.4. Estimated GFR was 48 mL per minute. His glucose was 143, calcium was 8.5, magnesium was 2.2. Total bilirubin, AST, ALT, alkaline phosphatase were normal. CK was 201. Troponin was 0.146. Beta natriuretic peptide was 2835. Total protein was 6.5, albumin was 3.3 and lipase was 109. His prothrombin time was 37.3, INR 3.8, APTT was 34 and D-dimer was 0.78. His urinalysis showed the urine was yellow, clear with a pH of 7, specific gravity of 1.020. The urine was negative for protein, glucose, ketones, blood, nitrite, and leukocyte esterase. There are no rbc's, no wbc's and very few bacteria. His tox screen was negative. ASSESSMENT AND PLAN: The patient was treated with amiodarone and he had 6 episodes of ventricular tachycardia, shocked by the defibrillator. He received amiodarone as well as magnesium sulfate and was transferred to [facility] to consult the cardiology team for recurrent V-tach. Patient had six episodes of V-tach while in the [facility] Emergency Room, shocked by the defibrillator, was found also to have non-ST segment elevation myocardial infarction with troponin is up to 0.146. He has multiple other medical problems including aortic valve replacement with prosthetic valve for congenital bicuspid valve; coronary artery disease with ischemic cardiomyopathy; hypertension; hyperlipidemia; type 2 diabetes mellitus and chronic kidney disease. We will repeat two more sets of cardiac enzyme, check his fasting lipid profile and consult the Cardiology team. MARIA G DR: Anthony TID: [id number]
== END 2020-09-24 05:22 | disposition short-term general hospital (02) ==
LOC: ER 02:49
DX: I47.2 Ventricular tachycardia (principal); I11.0 Hypertensive heart disease with heart failure; I50.9 Heart failure, unspecified; R74.8 Abnormal levels of other serum enzymes; J44.9 Chronic obstructive pulmonary disease, unspecified; Z23 Encounter for immunization; Z88.6 Allergy status to analgesic agent; Z95.2 Presence of prosthetic heart valve; Z86.73 Personal history of transient ischemic attack (TIA), and cerebral infarction without residual deficits
CPT/HCPCS: 36415; 71045; 80048; 80076; 80307; 81001; 82550; 83690; 83735; 83880; 84443; 84484; 85025; 85379; 85610; 85730; 93005; 96361; 96365; 96375; 99285; J0282; J1940; J3475; J7120